=== PATIENT | male | born 1990 | race African-American/Black ===

== ENCOUNTER 2016-08-11 19:19 | Emergency (ER) | payer MEDICAID ==
[~2016-08-11] VITALS: Ht 177.8 cm; Wt 73.5 kg
[2016-08-11] MEDS ORDERED: BACITRACIN ZINC OINT UDPKT TOP ONE (22:00)
[2016-08-11] MEDS ORDERED: ACETAMINOPHEN WITH CODEINE 300/30MG TABLET PO ONE (22:00)
[2016-08-11 22:18] VITALS: BP 115/79
== END 2016-08-11 23:25 | disposition home or self-care (01) ==
LOC: ER 20:14
DX: S62.114A Nondisplaced fracture of triquetrum [cuneiform] bone, right wrist, initial encounter for closed fracture (principal); F17.210 Nicotine dependence, cigarettes, uncomplicated; F12.10 Cannabis abuse, uncomplicated; Z88.8 Allergy status to other drugs, medicaments and biological substances; W50.0XXA Accidental hit or strike by another person, initial encounter; Y93.89 Activity, other specified; Y92.89 Other specified places as the place of occurrence of the external cause; Y99.8 Other external cause status
CPT/HCPCS: 29125; 71101; 73110; 73130; 99284; 99406

== ENCOUNTER 2016-08-15 23:36 | Emergency (ER) | payer MEDICAID | END 2016-08-16 01:57 | disposition left against medical advice (07) | LOC: ER 23:36 | DX: Z53.21 Procedure and treatment not carried out due to patient leaving prior to being seen by health care provider (principal) ==

== ENCOUNTER 2016-08-19 00:03 | Emergency (ER) | payer MEDICAID ==
[~2016-08-19] VITALS: Ht 165.1 cm; Wt 75.0 kg
[2016-08-19] MEDS ORDERED: MORPHINE SULFATE 10 MG/ML CPJ IM ONE (03:00)
[2016-08-19] MEDS ORDERED: ONDANSETRON HCL 4MG/2ML VIAL IM ONE (03:00)
[2016-08-19 03:23] LABS: EOSINOPHILS % 3.5 % (0.0-5.0); HEMATOCRIT. 36.1 % (42.0-52.0); HEMOGLOBIN. 11.6 g/dL (14.0-18.0); LYMPHOCYTES % 26.3 % (20.0-50.0); MEAN CORPUSCULAR HGB CONC 32.1 g/dL (31.0-37.0); MEAN PLATELET VOLUME 8.4 fl (7.4-10.4); MONOCYTES % 10.4 % (2.0-8.0); NEUTROPHILS % 58.8 % (40.0-76.0); PLATELET 329 x1000/uL (130-400); RED BLOOD CELL COUNT 4.45 mill/uL (4.7-6.1); RED CELL DISTRIBUTION WIDTH 15.4 % (11.6-14.6); WHITE BLOOD COUNT 5.7 x1000/uL (4.5-11.0)
[2016-08-19 03:29] LABS: ALANINE AMINOTRANSFERASE 21 IU/L (13-61); ALBUMIN 3.2 g/dL (3.4-5.0); ANION GAP 12; CALCIUM 8.7 mg/dL (8.5-10.1); CARBON DIOXIDE 30 mEq/L (21-32); CHLORIDE 105 mEq/L (98-107); INDEX HEMOLYSI 1 (1-3); INDEX ICTERIC 1 (1-4); INDEX LIPEMIC 1 (1-3); UREA NITROGEN BLOOD 8 mg/dL (7-21); eGFR > 60 mL/min (>60)
[2016-08-19 05:10] VITALS: BP 110/71
== END 2016-08-19 05:22 | disposition home or self-care (01) ==
LOC: ER 00:04
DX: K50.90 Crohn's disease, unspecified, without complications (principal); S20.351A Superficial foreign body of right front wall of thorax, initial encounter; Z88.8 Allergy status to other drugs, medicaments and biological substances; W34.00XA Accidental discharge from unspecified firearms or gun, initial encounter; Y93.89 Activity, other specified; Y92.89 Other specified places as the place of occurrence of the external cause; Y99.8 Other external cause status
CPT/HCPCS: 36415; 80053; 85025; 85651; 96372; 99284; J2270; J2405

== ENCOUNTER 2016-08-21 21:42 | Emergency (ER) | payer MEDICAID ==
[~2016-08-21] VITALS: Ht 177.8 cm; Wt 73.0 kg
[2016-08-22] MEDS ORDERED: IBUPROFEN 600MG TABLET PO ONE (00:15)
[2016-08-22 00:50] VITALS: BP 127/89
== END 2016-08-22 01:33 | disposition home or self-care (01) ==
LOC: ER 23:52
DX: S62.111A Displaced fracture of triquetrum [cuneiform] bone, right wrist, initial encounter for closed fracture (principal); F17.200 Nicotine dependence, unspecified, uncomplicated; F12.10 Cannabis abuse, uncomplicated; X58.XXXA Exposure to other specified factors, initial encounter; Y93.89 Activity, other specified; Y92.89 Other specified places as the place of occurrence of the external cause; Y99.8 Other external cause status
CPT/HCPCS: 99282; A4565

== ENCOUNTER 2016-09-11 18:43 | Emergency (ER) | payer MEDICAID ==
[~2016-09-11] VITALS: Ht 177.8 cm; Wt 75.0 kg
[2016-09-11 21:56] VITALS: BP 124/80
[2016-09-11] MEDS ORDERED: IBUPROFEN 600MG TABLET PO ONE (22:45)
== END 2016-09-11 22:58 | disposition home or self-care (01) ==
LOC: ER 19:40
DX: M79.1 Myalgia (principal); R51 Headache; F43.0 Acute stress reaction; Z63.79 Other stressful life events affecting family and household; F17.210 Nicotine dependence, cigarettes, uncomplicated; F12.90 Cannabis use, unspecified, uncomplicated; Z88.8 Allergy status to other drugs, medicaments and biological substances
CPT/HCPCS: 99282

== ENCOUNTER 2016-09-17 23:08 | Emergency (ER) | payer MEDICAID ==
[~2016-09-17] VITALS: Ht 177.8 cm; Wt 75.0 kg
[2016-09-18 01:22] VITALS: BP 120/81
[2016-09-18 04:26] LABS: CLARITY URINE CLEAR (CLEAR); COLOR URINE YELLOW (YELLOW); GLUCOSE URINE NEGATIVE (NEGATIVE); KETONES URINE NEGATIVE (NEGATIVE); LEUKOCYTE ESTERASE URINE NEGATIVE (NEGATIVE); NITRITE URINE NEGATIVE (NEGATIVE); OCCULT BLOOD URINE NEGATIVE (NEGATIVE); PH URINE 6.5 (4.5-8.0); PROTEIN URINE NEGATIVE (NEGATIVE); SPECIFIC GRAVITY URINE 1.009 (1.005-1.030)
[2016-09-18 04:45] LABS: *AMPHETAMINES SCREEN URINE NEGATIVE (NEGATIVE); *BARBITURATES SCREEN URINE NEGATIVE (NEGATIVE); *BENZODIAZEPINES SCREEN URINE NEGATIVE (NEGATIVE); *COCAINE SCREEN URINE NEGATIVE (NEGATIVE); CANNABINOID URINE SCREEN PRESUMTIVE POSITIVE (NEGATIVE); METHADONE URINE SCREEN NEGATIVE (NEGATIVE); OPIATES URINE SCREEN PRESUMTIVE POSITIVE (NEGATIVE); PHENCYCLIDINE URINE SCREEN NEGATIVE (NEGATIVE)
[2016-09-18] MEDS ORDERED: SODIUM CHLORIDE 0.9% 1,000 ML IV ONE (06:40)
[2016-09-18] MEDS ORDERED: ONDANSETRON HCL 4MG/2ML VIAL IV STA (06:40)
== END 2016-09-18 08:24 | disposition home or self-care (01) ==
LOC: ER 23:08
DX: R10.30 Lower abdominal pain, unspecified (principal); R19.7 Diarrhea, unspecified; R11.2 Nausea with vomiting, unspecified; F17.210 Nicotine dependence, cigarettes, uncomplicated; F12.90 Cannabis use, unspecified, uncomplicated; Z88.8 Allergy status to other drugs, medicaments and biological substances; Z53.29 Procedure and treatment not carried out because of patient's decision for other reasons
CPT/HCPCS: 80305; 81003; 99284; J7030

== ENCOUNTER 2016-10-12 02:54 | Emergency (ER) | payer MEDICAID ==
[~2016-10-12] VITALS: Ht 177.8 cm; Wt 78.0 kg
[2016-10-12] MEDS ORDERED: IBUPROFEN 600MG TABLET PO ONE (04:00)
[2016-10-12] MEDS ORDERED: MORPHINE SULFATE 10 MG/ML CPJ IM ONE (07:00)
[2016-10-12 07:02] VITALS: BP 113/68
[2016-10-12 07:07] LABS: HEMATOCRIT. 34.7 % (42.0-52.0); HEMOGLOBIN. 11.1 g/dL (14.0-18.0); MEAN CORPUSCULAR HEMOGLOBIN 25.1 pg (28.0-32.0); MEAN CORPUSCULAR VOLUME 78.3 fL (80.0-94.0); PLATELET 278 x1000/uL (130-400); RED BLOOD CELL COUNT 4.43 mill/uL (4.7-6.1); RED CELL DISTRIBUTION WIDTH 16.4 % (11.6-14.6)
[2016-10-12 07:25] LABS: PLATELET ESTIMATE NORMAL
== END 2016-10-12 08:12 | disposition home or self-care (01) ==
LOC: ER 02:54
DX: S60.221A Contusion of right hand, initial encounter (principal); F17.200 Nicotine dependence, unspecified, uncomplicated; F12.10 Cannabis abuse, uncomplicated; Z88.8 Allergy status to other drugs, medicaments and biological substances; W21.05XA Struck by basketball, initial encounter; Y93.67 Activity, basketball; Y92.89 Other specified places as the place of occurrence of the external cause; Y99.8 Other external cause status
CPT/HCPCS: 36415; 73130; 85007; 85027; 96372; 99285; J2270

== ENCOUNTER 2016-10-17 04:51 | Emergency (ER) | payer MEDICAID ==
[~2016-10-17] VITALS: Ht 177.8 cm; Wt 75.0 kg
[2016-10-17 05:50] LABS: BASOPHILS % 0.6 % (0.0-2.0); EOSINOPHILS % 2.9 % (0.0-5.0); HEMATOCRIT. 30.4 % (42.0-52.0); HEMOGLOBIN. 9.9 g/dL (14.0-18.0); LYMPHOCYTES % 18.6 % (20.0-50.0); MEAN CORPUSCULAR HEMOGLOBIN 25.2 pg (28.0-32.0); MEAN CORPUSCULAR VOLUME 77.3 fL (80.0-94.0); MEAN PLATELET VOLUME 7.7 fl (7.4-10.4); NEUTROPHILS % 67.9 % (40.0-76.0); PLATELET 313 x1000/uL (130-400); RED BLOOD CELL COUNT 3.94 mill/uL (4.7-6.1); RED CELL DISTRIBUTION WIDTH 16.3 % (11.6-14.6)
[2016-10-17 05:55] LABS: INR 1.1; PROTHROMBIN TIME 11.1 sec
[2016-10-17 06:03] LABS: CARBON DIOXIDE 28 mEq/L (21-32); CHLORIDE 108 mEq/L (98-107)
[2016-10-17] MEDS ORDERED: KETOROLAC 30MG/ML VIAL IV ONE (06:30)
[2016-10-17] MEDS ORDERED: FAMOTIDINE 20MG/2ML VIAL IV SCH (09:45)
[2016-10-17] MEDS ORDERED: FAMOTIDINE 20MG/2ML VIAL IV ONE (09:45)
[2016-10-17 09:50] VITALS: BP 120/88
[2016-10-17] MEDS ORDERED: SODIUM CHLORIDE 0.9% 10ML VIAL ONE (10:57)
[2016-10-17] MEDS ORDERED: IOHEXOL-300 100 ML BOTTLE ONE (10:57)
== END 2016-10-17 10:30 | disposition home or self-care (01) ==
LOC: ER 04:51
DX: K50.90 Crohn's disease, unspecified, without complications (principal); K52.9 Noninfective gastroenteritis and colitis, unspecified; F20.9 Schizophrenia, unspecified; F17.210 Nicotine dependence, cigarettes, uncomplicated; F12.10 Cannabis abuse, uncomplicated; Z85.47 Personal history of malignant neoplasm of testis; Z90.79 Acquired absence of other genital organ(s)
CPT/HCPCS: 36415; 74177; 80053; 83690; 85025; 85610; 96374; 96375; 99285; A4216; J1885; J3490; Q9967; Z7610

== ENCOUNTER 2016-10-27 23:29 | Emergency (ER) | payer MEDICAID ==
[~2016-10-27] VITALS: Ht 157.5 cm; Wt 79.0 kg
[2016-10-28 01:03] VITALS: BP 121/71
== END 2016-10-28 11:36 | disposition left against medical advice (07) ==
LOC: ER 10-28 11:01
DX: R42 Dizziness and giddiness (principal); Z53.21 Procedure and treatment not carried out due to patient leaving prior to being seen by health care provider

== ENCOUNTER 2018-02-26 13:36 | Inpatient (IN) | payer MEDICAID ==
[~2018-02-26] VITALS: Ht 177.8 cm; Wt 69.9 kg
[2018-02-26] MEDS ORDERED: ONDANSETRON HCL 4MG/2ML INJ IV ONE (15:15)
[2018-02-26] MEDS ORDERED: MORPHINE SULFATE 4 MG/ML CPJ (NOT FOR IM USE) IV ONE (15:15)
[2018-02-26 15:49] LABS: EOSINOPHILS % 3.2 % (0.0-5.0); HEMATOCRIT. 30.8 % (42.0-52.0); HEMOGLOBIN. 9.7 g/dL (14.0-18.0); MEAN CORPUSCULAR HEMOGLOBIN 22.6 pg (28.0-32.0); MEAN CORPUSCULAR VOLUME 71.8 fL (80.0-94.0); MEAN PLATELET VOLUME 8.5 fl (7.4-10.4); MONOCYTES % 12.3 % (2.0-8.0); NEUTROPHILS % 65.5 % (40.0-76.0); PLATELET 393 x1000/uL (130-400); RED BLOOD CELL COUNT 4.29 mill/uL (4.7-6.1)
[2018-02-26 15:59] LABS: CHLORIDE 106 mEq/L (98-107)
[2018-02-26] MEDS ORDERED: DIPHENHYDRAMINE 50MG/ML VIAL IV ONE (16:00)
[2018-02-26] MEDS ORDERED: DIATR MEGLU/DIATRIZOATE SOLN 30ML ONE ×2 (16:20→17:55)
[2018-02-26] MEDS ORDERED: SODIUM CHLORIDE 0.9% 1,000 ML IV ONE (17:15)
[2018-02-26] MEDS ORDERED: PIPERACILLIN/TAZOBACTAM 3.375GM/50ML PREMIX IV ONE (17:15)
[2018-02-26] MEDS: PIPERACILLIN/TAZ 3.375G PREMIX 50 ML IV NR ×2 (17:23→18:44)
[2018-02-26] MEDS ORDERED: FAMOTIDINE 20MG/2ML VIAL IV STA (17:42)
[2018-02-26] MEDS ORDERED: METOCLOPRAMIDE HCL 10MG/2ML VIAL IV STA (17:42)
[2018-02-26] MEDS ORDERED: FENTANYL CITRATE/PF 50MCG/ML 2ML VIAL IV ONE (18:00)
[2018-02-26] MEDS ORDERED: IOHEXOL-300 100 ML BOTTLE ONE (19:55)
[2018-02-26 22:09] LABS: CLARITY URINE CLOUDY (CLEAR); COLOR URINE YELLOW (YELLOW); KETONES URINE NEGATIVE (NEGATIVE); LEUKOCYTE ESTERASE URINE 3+ (NEGATIVE); NITRITE URINE NEGATIVE (NEGATIVE); OCCULT BLOOD URINE 2+ (NEGATIVE); PH URINE 6.5 (4.5-8.0); PROTEIN URINE 1+ (NEGATIVE); SPECIFIC GRAVITY URINE 1.031 (1.005-1.030); UROBILINOGEN URINE 0.2 E.U./dL (0.2-1.0)
[2018-02-26] MEDS ORDERED: LORAZEPAM 2MG/ML CPJ IV PRN (23:30)
[2018-02-26] MEDS: HYDROMORPHONE HCL/PF 2MG/ML CPJ IV PRN (23:43)
[2018-02-27] VITALS: BP 126/80
[2018-02-27] MEDS ORDERED: LEVOFLOXACIN 500MG PREMIX 100 ML IV SCH (01:00)
[2018-02-27] MEDS: SODIUM CHLORIDE 0.9% 1,000 ML IV SCH ×2 (01:17→10:42)
[2018-02-27] MEDS: METRONIDAZOLE 500 MG PREMIX 100 ML IV SCH ×2 (02:29→10:42)
[2018-02-27] MEDS: HYDROMORPHONE HCL/PF 2MG/ML CPJ IV PRN ×7 (02:34→23:50)
[2018-02-27 04:00] VITALS: BP 113/76
[2018-02-27 07:25] LABS: BASOPHILS % 1.2 % (0.0-2.0); EOSINOPHILS % 4.1 % (0.0-5.0); HEMATOCRIT. 30.5 % (42.0-52.0); HEMOGLOBIN. 9.6 g/dL (14.0-18.0); LYMPHOCYTES % 23.5 % (20.0-50.0); MEAN CORPUSCULAR HEMOGLOBIN 22.4 pg (28.0-32.0); MEAN CORPUSCULAR VOLUME 71.1 fL (80.0-94.0); MEAN PLATELET VOLUME 8.7 fl (7.4-10.4); MONOCYTES % 11.9 % (2.0-8.0); NEUTROPHILS % 59.3 % (40.0-76.0); PLATELET 390 x1000/uL (130-400); RED BLOOD CELL COUNT 4.29 mill/uL (4.7-6.1)
[2018-02-27 08:00] VITALS: BP 115/69
[2018-02-27 08:12] LABS: CHLORIDE 108 mEq/L (98-107)
[2018-02-27 08:21] LABS: PHOSPHORUS 3.6 mg/dL (2.5-4.9)
[2018-02-27] MEDS: ENOXAPARIN 40MG/0.4ML SYR SUBCUT SCH (09:00)
[2018-02-27 12:00] VITALS: BP 115/70
[2018-02-27] MEDS ORDERED: METRONIDAZOLE 500 MG PREMIX 100 ML IV SCH (13:45)
[2018-02-27] MEDS: MESALAMINE 400 MG CAPSULE.DR PO SCH ×2 (13:57→18:41)
[2018-02-27 16:00] VITALS: BP 120/71
[2018-02-27] MEDS: CEFTRIAXONE 1 G PREMIX 50 ML IV SCH (18:41)
[2018-02-27 20:00] VITALS: BP 124/79
[2018-02-28] VITALS: BP 124/85
[2018-02-28] MEDS: HYDROMORPHONE HCL/PF 2MG/ML CPJ IV PRN ×7 (02:37→23:07)
[2018-02-28 04:00] VITALS: BP 140/83
[2018-02-28] MEDS: METRONIDAZOLE 500 MG PREMIX 100 ML IV SCH ×3 (06:22→23:02)
[2018-02-28 08:00] VITALS: BP 132/91
[2018-02-28] MEDS: MESALAMINE 400 MG CAPSULE.DR PO SCH ×4 (08:15→17:51)
[2018-02-28] MEDS: ENOXAPARIN 40MG/0.4ML SYR SUBCUT SCH (08:18)
[2018-02-28 10:38] LABS: BASOPHILS % 0.7 % (0.0-2.0); EOSINOPHILS % 2.4 % (0.0-5.0); HEMATOCRIT. 32.6 % (42.0-52.0); HEMOGLOBIN. 10.2 g/dL (14.0-18.0); LYMPHOCYTES % 17.3 % (20.0-50.0); MEAN CORPUSCULAR HEMOGLOBIN 22.2 pg (28.0-32.0); MEAN CORPUSCULAR VOLUME 70.6 fL (80.0-94.0); MONOCYTES % 8.7 % (2.0-8.0); NEUTROPHILS % 70.9 % (40.0-76.0); PLATELET 396 x1000/uL (130-400); RED BLOOD CELL COUNT 4.61 mill/uL (4.7-6.1); RED CELL DISTRIBUTION WIDTH 18.3 % (11.6-14.6)
[2018-02-28 11:15] LABS: CHLORIDE 105 mEq/L (98-107)
[2018-02-28 11:21] LABS: PHOSPHORUS 3.3 mg/dL (2.5-4.9)
[2018-02-28 12:00] VITALS: BP 136/87
[2018-02-28] MEDS: METHYLPREDNISOLONE SOD SUCC 40 MG/ML VIAL IV SCH ×2 (13:24→23:03)
[2018-02-28 16:00] VITALS: BP 143/90
[2018-02-28] MEDS: CEFTRIAXONE 1 G PREMIX 50 ML IV SCH (17:40)
[2018-02-28 20:00] VITALS: BP 144/79
[2018-03-01] VITALS: BP 122/81
[2018-03-01] MEDS: HYDROMORPHONE HCL/PF 2MG/ML CPJ IV PRN ×6 (01:32→22:38)
[2018-03-01 04:57] VITALS: BP 119/64
[2018-03-01] MEDS: METRONIDAZOLE 500 MG PREMIX 100 ML IV SCH ×3 (06:29→21:29)
[2018-03-01] MEDS: METHYLPREDNISOLONE SOD SUCC 40 MG/ML VIAL IV SCH ×3 (06:30→21:29)
[2018-03-01 08:00] VITALS: BP 139/44
[2018-03-01 12:00] VITALS: BP 121/77
[2018-03-01] MEDS: MESALAMINE 400 MG CAPSULE.DR PO SCH ×2 (13:00→17:00)
[2018-03-01] MEDS: ENOXAPARIN 40MG/0.4ML SYR SUBCUT SCH (13:14)
[2018-03-01 16:00] VITALS: BP 121/77
[2018-03-01] MEDS: CEFTRIAXONE 1 G PREMIX 50 ML IV SCH (17:54)
[2018-03-01 20:00] VITALS: BP 116/66
[2018-03-02] VITALS: BP 115/71
[2018-03-02] MEDS: HYDROMORPHONE HCL/PF 2MG/ML CPJ IV PRN ×8 (00:50→21:18)
[2018-03-02 04:00] VITALS: BP 126/86
[2018-03-02 06:05] LABS: HEMOGLOBIN. 10.5 g/dL (14.0-18.0); MEAN CORPUSCULAR HEMOGLOBIN 22.6 pg (28.0-32.0); MEAN CORPUSCULAR VOLUME 70.9 fL (80.0-94.0); MEAN PLATELET VOLUME 8.7 fl (7.4-10.4); PLATELET 469 x1000/uL (130-400); RED BLOOD CELL COUNT 4.65 mill/uL (4.7-6.1); RED CELL DISTRIBUTION WIDTH 17.9 % (11.6-14.6)
[2018-03-02] MEDS: METHYLPREDNISOLONE SOD SUCC 40 MG/ML VIAL IV SCH ×3 (06:09→21:18)
[2018-03-02] MEDS: METRONIDAZOLE 500 MG PREMIX 100 ML IV SCH ×3 (06:09→21:18)
[2018-03-02 06:25] LABS: CHLORIDE 104 mEq/L (98-107)
[2018-03-02 06:30] LABS: PHOSPHORUS 3.7 mg/dL (2.5-4.9)
[2018-03-02] MEDS: ENOXAPARIN 40MG/0.4ML SYR SUBCUT SCH (09:02)
[2018-03-02] MEDS: MESALAMINE 400 MG CAPSULE.DR PO SCH ×3 (09:02→17:00)
[2018-03-02 13:17] LABS: PLATELET ESTIMATE INCREASED
[2018-03-02] MEDS: CEFTRIAXONE 1 G PREMIX 50 ML IV SCH (17:40)
[2018-03-02 20:00] VITALS: BP 132/79
[2018-03-03] VITALS: BP 131/78
[2018-03-03] MEDS: HYDROMORPHONE HCL/PF 2MG/ML CPJ IV PRN ×8 (00:07→22:49)
[2018-03-03 04:00] VITALS: BP 123/54
[2018-03-03] MEDS: METRONIDAZOLE 500 MG PREMIX 100 ML IV SCH ×3 (06:41→22:41)
[2018-03-03] MEDS: METHYLPREDNISOLONE SOD SUCC 40 MG/ML VIAL IV SCH ×3 (06:41→22:42)
[2018-03-03] MEDS: ENOXAPARIN 40MG/0.4ML SYR SUBCUT SCH (08:17)
[2018-03-03] MEDS: MESALAMINE 400 MG CAPSULE.DR PO SCH ×3 (08:18→17:00)
[2018-03-03] MEDS: ONDANSETRON HCL 4MG/2ML INJ IV PRN ×2 (09:16→17:22)
[2018-03-03] MEDS: CEFTRIAXONE 1 G PREMIX 50 ML IV SCH (17:22)
[2018-03-03 20:00] VITALS: BP 142/48
[2018-03-04] VITALS: BP 126/91
[2018-03-04] MEDS: ONDANSETRON HCL 4MG/2ML INJ IV PRN ×2 (00:38→08:22)
[2018-03-04] MEDS ORDERED: HYDROMORPHONE HCL/PF 2MG/ML CPJ IV PRN (01:15)
[2018-03-04 04:00] VITALS: BP 127/90
[2018-03-04] MEDS: HYDROMORPHONE HCL/PF 2MG/ML CPJ IV PRN ×3 (05:18→11:11)
[2018-03-04] MEDS: METRONIDAZOLE 500 MG PREMIX 100 ML IV SCH (05:19)
[2018-03-04] MEDS: METHYLPREDNISOLONE SOD SUCC 40 MG/ML VIAL IV SCH (05:19)
[2018-03-04 08:00] VITALS: BP 132/83
[2018-03-04] MEDS: ENOXAPARIN 40MG/0.4ML SYR SUBCUT SCH (08:22)
[2018-03-04] MEDS: MESALAMINE 400 MG CAPSULE.DR PO SCH ×2 (09:00→13:00)
[2018-03-04 12:00] VITALS: BP 123/87
[2018-03-04] MEDS ORDERED: PANTOPRAZOLE 40MG DR TABLET PO SCH (12:45)
[2018-03-04 13:06] LABS: ANTI-MYELOPEROXIDASE AB < 9.0 U/mL (0.0-9.0); ANTI-PROTEINASE 3 ABS < 3.5 U/mL (0.0-3.5); ATYPICAL P-ANCA <1:20 titer (Neg:<1:20); CYTOPLASMIC C-ANCA <1:20 titer (Neg:<1:20); PERINUCLEAR P-ANCA <1:20 titer (Neg:<1:20)
[2018-03-04 13:06] LABS: ATYPICAL pANCA <1:20 titer (Neg:<1:20)
[2018-03-04 14:41] VITALS: BP 123/87
[2018-03-04 17:11] LABS: SACCHAROMYCES CEREVISIAE IGM 61.5 Units (0.0-24.9)
== END 2018-03-04 15:05 | disposition home or self-care (01) | DRG 245 ==
LOC: ER 15:29 → 6EST 18:09 → ENRESERV 20:59 → 6EST 23:30
PROVIDERS: ADMIT Internal Medicine Nephrology; ATTEND Internal Medicine Nephrology
DX: K50.90 Crohn's disease, unspecified, without complications (principal); E44.0 Moderate protein-calorie malnutrition; F20.9 Schizophrenia, unspecified; N13.4 Hydroureter; D64.9 Anemia, unspecified; N32.2 Vesical fistula, not elsewhere classified; N39.0 Urinary tract infection, site not specified; K52.9 Noninfective gastroenteritis and colitis, unspecified; N28.9 Disorder of kidney and ureter, unspecified; F17.200 Nicotine dependence, unspecified, uncomplicated; T38.0X5A Adverse effect of glucocorticoids and synthetic analogues, initial encounter; Y92.238 Other place in hospital as the place of occurrence of the external cause; Z88.8 Allergy status to other drugs, medicaments and biological substances; Z68.22 Body mass index [BMI] 22.0-22.9, adult
CPT/HCPCS: 36415; 74176; 74177; 80048; 83520; 83735; 84100; 86256; 86671; 93005; 96361; 96365; 96375; 96376; 99285; J0696; J1170; J1200; J1650; J1956; J2270; J2405; J2543; J2765; J2920; J3010; J3490; J7030; J7040; Q9963; Q9967

== ENCOUNTER 2019-01-07 19:57 | Emergency (ER) | payer MEDICAID ==
[~2019-01-07] VITALS: Ht 177.8 cm; Wt 75.0 kg
[2019-01-07] MEDS ORDERED: KETOROLAC 30MG/ML VIAL IM ONE (21:15)
[2019-01-07 23:20] VITALS: BP 121/87
== END 2019-01-07 23:20 | disposition home or self-care (01) ==
LOC: ER 19:57
DX: M54.5 Low back pain (principal); F12.10 Cannabis abuse, uncomplicated; F17.200 Nicotine dependence, unspecified, uncomplicated; Z88.8 Allergy status to other drugs, medicaments and biological substances
CPT/HCPCS: 71101; 72100; 96372; 99283; J1885

== ENCOUNTER 2019-04-03 14:16 | Emergency (ER) | payer MEDICAID ==
[~2019-04-03] VITALS: Ht 182.9 cm; Wt 75.0 kg
[2019-04-03 14:31] VITALS: BP 131/82
== END 2019-04-03 20:30 | disposition left against medical advice (07) ==
LOC: ER 14:16
DX: Z53.21 Procedure and treatment not carried out due to patient leaving prior to being seen by health care provider (principal)

== ENCOUNTER 2019-04-13 16:46 | Inpatient (IN) | payer MEDICAID ==
[~2019-04-13] VITALS: Ht 175.3 cm; Wt 72.6 kg
[2019-04-13] MEDS ORDERED: SODIUM CHLORIDE 0.9% 1,000 ML IV ONE (21:31)
[2019-04-13] MEDS ORDERED: KETOROLAC 30MG/ML VIAL IV ONE (21:45)
[2019-04-13 21:57] LABS: HEMATOCRIT. 36.9 % (42.0-52.0); HEMOGLOBIN. 11.9 g/dL (14.0-18.0); RED BLOOD CELL COUNT 4.84 mill/uL (4.7-6.1)
[2019-04-13 21:58] LABS: BASOPHILS % 1.1 % (0.0-2.0); EOSINOPHILS % 3.3 % (0.0-5.0); LYMPHOCYTES % 20.1 % (20.0-50.0); MEAN CORPUSCULAR HEMOGLOBIN 24.7 pg (28.0-32.0); MEAN CORPUSCULAR VOLUME 76.4 fL (80.0-94.0); MEAN PLATELET VOLUME 8.4 fl (7.4-10.4); MONOCYTES % 9.6 % (2.0-8.0); NEUTROPHILS % 65.9 % (40.0-76.0); PLATELET 297 x1000/uL (130-400); RED CELL DISTRIBUTION WIDTH 20.1 % (11.6-14.6)
[2019-04-13 22:02] LABS: CHLORIDE 106 mEq/L (98-107); PROTHROMBIN TIME 10.7 sec (9.6-11.0)
[2019-04-13] MEDS ORDERED: IOHEXOL-300 100 ML BOTTLE ONE (23:25)
[2019-04-14] MEDS ORDERED: CEFTRIAXONE 2 G PREMIX 50 ML IV ONE (00:15)
[2019-04-14] MEDS ORDERED: METRONIDAZOLE 500 MG PREMIX 100 ML IV ONE (00:15)
[2019-04-14] MEDS ORDERED: MORPHINE SULFATE 2 MG/ML CPJ (NOT FOR IM USE) IV PRN (02:45)
[2019-04-14 03:30] VITALS: BP 117/81
[2019-04-14 03:32] VITALS: BP 117/81
[2019-04-14] MEDS ORDERED: DIVA250T45 PO (04:02)
[2019-04-14] MEDS ORDERED: DIPH25CA46 PO (04:02)
[2019-04-14] MEDS ORDERED: FERR325T23 PO (04:02)
[2019-04-14] MEDS ORDERED: DIPHENHYDRAMINE 50MG/ML VIAL IV PRN (04:15)
[2019-04-14] MEDS ORDERED: PEN250 PO (04:31)
[2019-04-14] MEDS ORDERED: ARIP300S IM (04:54)
[2019-04-14 08:00] VITALS: BP 115/73
[2019-04-14] MEDS ORDERED: DIVALPROEX SODIUM 250MG DR TABLET PO SCH (09:00)
[2019-04-14] MEDS ORDERED: MESALAMINE 400 MG CAPSULE.DR PO SCH (09:00)
[2019-04-14 12:00] VITALS: BP 98/61
[2019-04-14] MEDS ORDERED: ARIPIPRAZOLE 5MG TABLET PO SCH (21:00)
== END 2019-04-14 14:03 | disposition left against medical advice (07) | DRG 245 ==
LOC: ER 17:04 → 7WST 04-14 00:40 → ENRESERV 04-14 01:33
PROVIDERS: ADMIT Internal Medicine; ATTEND Internal Medicine
DX: K50.90 Crohn's disease, unspecified, without complications (principal); N13.30 Unspecified hydronephrosis; D64.9 Anemia, unspecified; L98.8 Other specified disorders of the skin and subcutaneous tissue; K52.9 Noninfective gastroenteritis and colitis, unspecified; Z53.29 Procedure and treatment not carried out because of patient's decision for other reasons; N39.0 Urinary tract infection, site not specified; Z79.899 Other long term (current) drug therapy; Z88.8 Allergy status to other drugs, medicaments and biological substances
CPT/HCPCS: 36415; 74177; 83605; 99285; J0696; J1885; J2270; J3490; J7030; Q9967

== ENCOUNTER 2019-12-04 20:54 | Emergency (ER) | payer MEDICAID ==
[~2019-12-04] VITALS: Ht 172.7 cm; Wt 82.0 kg
[~2019-12-04 20:54] MED LIST: ARIP300S IM; DIPH25CA46 PO; DIVA250T45 PO; FERR325T23 PO; PEN250 PO
[2019-12-04] MEDS ORDERED: KETOROLAC 60MG/2ML VIAL IM STA (22:14)
[2019-12-05 00:50] LABS: BASOPHILS % 0.8 % (0.0-2.0); EOSINOPHILS % 1.4 % (0.0-5.0); HEMATOCRIT. 37.6 % (42.0-52.0); HEMOGLOBIN. 12.3 g/dL (14.0-18.0); LYMPHOCYTES % 18.6 % (20.0-50.0); MEAN CORPUSCULAR HEMOGLOBIN 25.1 pg (28.0-32.0); MEAN CORPUSCULAR VOLUME 76.5 fL (80.0-94.0); MEAN PLATELET VOLUME 8.3 fl (7.4-10.4); MONOCYTES % 9.4 % (2.0-8.0); NEUTROPHILS % 69.8 % (40.0-76.0); PLATELET 300 x1000/uL (130-400); RED BLOOD CELL COUNT 4.91 mill/uL (4.7-6.1); RED CELL DISTRIBUTION WIDTH 17.7 % (11.6-14.6)
[2019-12-05 00:55] LABS: CHLORIDE 105 mEq/L (98-107)
[2019-12-05 02:45] VITALS: BP 130/78
== END 2019-12-05 04:01 | disposition home or self-care (01) ==
LOC: ER 20:54
DX: M79.18 Myalgia, other site (principal); Z79.899 Other long term (current) drug therapy; Z88.8 Allergy status to other drugs, medicaments and biological substances
CPT/HCPCS: 36415; 80053; 83690; 84484; 85025; 93005; 96372; 99284; J1885

== ENCOUNTER 2019-12-06 16:04 | Emergency (ER) | payer MEDICAID ==
[~2019-12-06] VITALS: Ht 177.8 cm; Wt 86.0 kg
[2019-12-06] MEDS ORDERED: LORAZEPAM 2MG/ML CPJ IM STA (17:13)
[2019-12-06] MEDS ORDERED: TETANUS, DIPHTHERIA, PERTUSSIS VAC/PF 0.5ML (>7YR OLD) IM ONE (17:45)
[2019-12-06] MEDS ORDERED: HALOPERIDOL LACTATE 5MG/ML VIAL IM ONE (17:45)
[2019-12-06 19:04] LABS: BASOPHILS % 0.8 % (0.0-2.0); EOSINOPHILS % 0.5 % (0.0-5.0); HEMATOCRIT. 35.6 % (42.0-52.0); HEMOGLOBIN. 11.5 g/dL (14.0-18.0); MEAN CORPUSCULAR HEMOGLOBIN 24.7 pg (28.0-32.0); MEAN CORPUSCULAR VOLUME 76.4 fL (80.0-94.0); MEAN PLATELET VOLUME 8.2 fl (7.4-10.4); MONOCYTES % 7.4 % (2.0-8.0); NEUTROPHILS % 76.3 % (40.0-76.0); PLATELET 301 x1000/uL (130-400); RED BLOOD CELL COUNT 4.66 mill/uL (4.7-6.1); RED CELL DISTRIBUTION WIDTH 17.6 % (11.6-14.6)
[2019-12-06 19:14] LABS: CHLORIDE 106 mEq/L (98-107)
[2019-12-06 19:18] LABS: ETHANOL BLOOD < 10 mg/dL
[2019-12-06] MEDS ORDERED: POTASSIUM CHLORIDE 20MEQ TABLET SR PO NR (19:30)
[2019-12-07 08:19] LABS: CLARITY URINE TURBID (CLEAR); COLOR URINE YELLOW (YELLOW); KETONES URINE NEGATIVE (NEGATIVE); LEUKOCYTE ESTERASE URINE 3+ (NEGATIVE); NITRITE URINE POSITIVE (NEGATIVE); OCCULT BLOOD URINE 2+ (NEGATIVE); PH URINE 6.5 (4.5-8.0); PROTEIN URINE 1+ (NEGATIVE); SPECIFIC GRAVITY URINE 1.009 (1.005-1.030); UROBILINOGEN URINE 0.2 E.U./dL (0.2-1.0)
[2019-12-07 08:31] LABS: *AMPHETAMINES SCREEN URINE PRESUMTIVE POSITIVE (NEGATIVE); *BARBITURATES SCREEN URINE NEGATIVE (NEGATIVE)
[2019-12-07 08:32] LABS: *BENZODIAZEPINES SCREEN URINE NEGATIVE (NEGATIVE); *COCAINE SCREEN URINE NEGATIVE (NEGATIVE); CANNABINOID URINE SCREEN NEGATIVE (NEGATIVE); METHADONE URINE SCREEN NEGATIVE (NEGATIVE); OPIATES URINE SCREEN NEGATIVE (NEGATIVE); PHENCYCLIDINE URINE SCREEN NEGATIVE (NEGATIVE)
[2019-12-07 14:25] VITALS: BP 144/58
== END 2019-12-07 16:14 | disposition home or self-care (01) ==
LOC: ER 16:04
DX: R45.1 Restlessness and agitation (principal); Z79.899 Other long term (current) drug therapy; Z88.8 Allergy status to other drugs, medicaments and biological substances
CPT/HCPCS: 36415; 80053; 80305; 80307; 80320; 80329; 81003; 85025; 87086; 90471; 90715; 96372; 99285; J1630; J2060; G0480

== ENCOUNTER 2020-07-06 16:38 | Inpatient (IN) | payer MEDICAID, OTHER ==
[~2020-07-06] VITALS: Ht 175.3 cm; Wt 72.6 kg
[2020-07-06] MEDS ORDERED: MORPHINE SULFATE 4 MG/ML CPJ (NOT FOR IM USE) IV STA (17:06)
[2020-07-06 17:25] LABS: BASOPHILS % 0.8 % (0.0-2.0); EOSINOPHILS % 1.4 % (0.0-5.0); HEMATOCRIT. 36.4 % (42.0-52.0); HEMOGLOBIN. 11.7 g/dL (14.0-18.0); LYMPHOCYTES % 15.5 % (20.0-50.0); MEAN CORPUSCULAR HEMOGLOBIN 25.2 pg (28.0-32.0); MEAN CORPUSCULAR VOLUME 78.3 fL (80.0-94.0); MEAN PLATELET VOLUME 8.2 fl (7.4-10.4); MONOCYTES % 7.4 % (2.0-8.0); NEUTROPHILS % 74.9 % (40.0-76.0); PLATELET 454 x1000/uL (130-400); RED BLOOD CELL COUNT 4.65 mill/uL (4.7-6.1); RED CELL DISTRIBUTION WIDTH 19.7 % (11.6-14.6)
[2020-07-06 17:32] LABS: CHLORIDE 102 mEq/L (98-107)
[2020-07-06] MEDS ORDERED: MORPHINE SULFATE 4 MG/ML CPJ (NOT FOR IM USE) IV ONE (19:45)
[2020-07-07 03:34] VITALS: BP 105/75
[2020-07-07 03:56] VITALS: BP 105/75
[2020-07-07] MEDS ORDERED: DIVA-75 PO (04:04)
[2020-07-07] MEDS ORDERED: DIPH50CA38 PO (04:04)
[2020-07-07] MEDS ORDERED: OLAN5TAB26 PO (04:04)
[2020-07-07] MEDS ORDERED: ONDANSETRON HCL 4MG/2ML INJ IV PRN (07:30)
[2020-07-07] MEDS ORDERED: ACETAMINOPHEN 325MG TABLET PO PRN (07:30)
[2020-07-07] MEDS ORDERED: HYDRALAZINE 20MG/ML VIAL IV PRN (07:30)
[2020-07-07] MEDS ORDERED: MORPHINE SULFATE 2 MG/ML CPJ (NOT FOR IM USE) IV PRN (07:30)
[2020-07-07] MEDS ORDERED: LORAZEPAM 2MG/ML CPJ IV PRN (07:30)
[2020-07-07] MEDS ORDERED: CLONIDINE 0.1MG TABLET PO PRN (07:30)
[2020-07-07] MEDS ORDERED: DIPHENHYDRAMINE 50MG/ML VIAL IV PRN (07:30)
[2020-07-07] MEDS ORDERED: MAGNESIUM/ALUMINUM HYDROXIDE/SIMETHICONE 30ML UDC PO PRN (07:30)
[2020-07-07] MEDS ORDERED: IPRATROPIUM/ALBUTEROL 0.5-3(2.5)MG/3ML NEB HHN PRN (07:30)
[2020-07-07] MEDS ORDERED: GUAIFENESIN 200MG/10ML SUGAR FREE UDC PO PRN (07:30)
[2020-07-07] MEDS ORDERED: DOCUSATE SODIUM 100MG CAPSULE PO PRN (07:30)
[2020-07-07 08:00] VITALS: BP 103/58
[2020-07-07] MEDS: ENOXAPARIN 40MG/0.4ML SYR SUBCUT SCH (09:13)
[2020-07-07] MEDS ORDERED: FERROUS SULFATE 325MG TABLET PO SCH (10:30)
[2020-07-07] MEDS: DIVALPROEX SODIUM 500MG DR TABLET PO SCH ×2 (11:06→17:48)
[2020-07-07] MEDS: OLANZAPINE 5MG TABLET PO SCH (11:06)
[2020-07-07] MEDS: HYDROCODONE/ACETAMINOPHEN 5/325MG TABLET PO PRN ×2 (11:07→23:46)
[2020-07-07] MEDS: SODIUM CHLORIDE 0.9% INJ 3ML FLUSH IVF SCH ×2 (14:44→21:25)
[2020-07-07 16:10] LABS: CREATINE KINASE 41 IU/L (39-308)
[2020-07-07 16:11] LABS: CREATINE KINASE MB FRACTION < 1.0 ng/mL (0.5-3.6)
[2020-07-07 20:28] VITALS: BP 116/60
[2020-07-08 00:09] LABS: CREATINE KINASE 37 IU/L (39-308)
[2020-07-08 00:10] LABS: CREATINE KINASE MB FRACTION < 1.0 ng/mL (0.5-3.6)
[2020-07-08 00:24] VITALS: BP 116/72
[2020-07-08 04:00] VITALS: BP 109/69
[2020-07-08] MEDS: SODIUM CHLORIDE 0.9% INJ 3ML FLUSH IVF SCH (05:13)
[2020-07-08 07:12] LABS: EOSINOPHILS % 0.6 % (0.0-5.0); HEMATOCRIT. 34.3 % (42.0-52.0); HEMOGLOBIN. 11.4 g/dL (14.0-18.0); LYMPHOCYTES % 9.5 % (20.0-50.0); MEAN CORPUSCULAR HEMOGLOBIN 25.9 pg (28.0-32.0); MEAN CORPUSCULAR VOLUME 77.7 fL (80.0-94.0); MEAN PLATELET VOLUME 8.6 fl (7.4-10.4); MONOCYTES % 6.7 % (2.0-8.0); NEUTROPHILS % 82.2 % (40.0-76.0); PLATELET 402 x1000/uL (130-400); RED BLOOD CELL COUNT 4.42 mill/uL (4.7-6.1); RED CELL DISTRIBUTION WIDTH 19.5 % (11.6-14.6)
[2020-07-08 07:25] LABS: CHLORIDE 103 mEq/L (98-107)
[2020-07-08 08:00] VITALS: BP 118/71
[2020-07-08] MEDS: OLANZAPINE 5MG TABLET PO SCH (09:00)
[2020-07-08] MEDS ORDERED: MESALAMINE 250MG CAPSULE EXTENDED RELEASE PO SCH ×2 (09:00→13:00)
[2020-07-08] MEDS: DIVALPROEX SODIUM 500MG DR TABLET PO SCH (09:43)
[2020-07-08] MEDS: ENOXAPARIN 40MG/0.4ML SYR SUBCUT SCH (09:48)
[2020-07-08 11:56] VITALS: BP 118/71
[2020-07-08 12:00] VITALS: BP 112/64
== END 2020-07-08 13:55 | DRG 203 ==
LOC: ER 16:38 → 6WST 23:04 → CANRESERV 23:13 → ENRESERV 23:13 → ER 07-07 03:20
PROVIDERS: ADMIT Internal Medicine; ATTEND Internal Medicine
DX: R07.9 Chest pain, unspecified (principal); D64.9 Anemia, unspecified; E44.1 Mild protein-calorie malnutrition; F17.200 Nicotine dependence, unspecified, uncomplicated; F20.9 Schizophrenia, unspecified; F31.9 Bipolar disorder, unspecified; F43.10 Post-traumatic stress disorder, unspecified; K51.90 Ulcerative colitis, unspecified, without complications; Z88.8 Allergy status to other drugs, medicaments and biological substances; Z68.23 Body mass index [BMI] 23.0-23.9, adult
CPT/HCPCS: 36415; 71045; 80053; 82550; 82553; 83880; 84443; 84484; 85025; 93005; 99285; J1650; J2270